=== PATIENT | male | born 1995 | race American Indian/Alaskan Native ===

== ENCOUNTER 2017-03-14 19:28 | Emergency (ER) | payer SELFPAY ==
[2017-03-14] MEDS ORDERED: Lidocaine 1% Inj (20ml) INFIL STA (19:39)
[2017-03-14] MEDS ORDERED: Amoxicillin-Clav 875-125 mg Tab PO STA (19:39)
[2017-03-14] MEDS ORDERED: Lidocaine 1% Inj (20ml) ONE (19:45)
[2017-03-14] MEDS ORDERED: Amoxicillin-Clav 875-125 mg Tab PO ONE (19:45)
[2017-03-14] MEDS ORDERED: Bacitracin 500 Units/gm Oint Foilpak UD ONE (20:17)
[2017-03-14 20:18] VITALS: BP 119/73; PULSE 60; RESP 16; TEMP 98.2; O2SAT 99
--- NOTE | 2017-03-14 21:32 | C.PDOC ---
History Of Present Illness 21 y/o male presents to the ED for evaluation of laceration to the lower lip and immediately above the upper lip after a dog bite BISQUE BRUSHER. Patient is requesting tetanus vaccination. Patient reports dog is a mixed breed and belongs to his roommate. He was playing with the dog when he bit his mouth. Otherwise, denies any sensory change, or any other associated symptoms at this time. Time Seen by Provider: 03/14/17 19:35 Chief Complaint (Nursing): Bite History Per: Patient History/Exam Limitations: no limitations Onset/Duration Of Symptoms: Days Current Symptoms Are (Timing): Still Present Location Of Injury: Anterior: Face Recent travel outside of the [place]: No Additional History Per: Patient - Animal Bite Description Of The Attack: Playing With Animal Description Of The Animal: Other (Roommate pet) Reports Animal Appears: Well Reports Animal's Immunization Status: Unknown Animal Control Notified: No Past Medical History Reviewed: Historical Data, Nursing Documentation, Vital Signs Vital Signs: Last Vital Signs Temp 98.2 F 03/14/17 19:50 Pulse 60 03/14/17 19:50 Resp 16 03/14/17 19:50 BP 119/73 03/14/17 19:50 Pulse Ox 99 03/14/17 21:44 - Medical History PMH: Asthma Denies: Chronic Kidney Disease Family History: States: Unknown Family Hx - Social History Hx Alcohol Use: No Hx Substance Use: No - Immunization History Hx Tetanus Toxoid Vaccination: Yes Hx Influenza Vaccination: No Hx Pneumococcal Vaccination: No Review Of Systems Except As Marked, All Systems Reviewed And Found Negative. Constitutional: Negative for: Fever, Chills Skin: Positive for: Other (laceration to lower lip, and perioral area) Neurological: Negative for: Weakness Physical Exam - Physical Exam Appears: Non-toxic, No Acute Distress Skin: Warm, Dry Head: Atraumatic, Normacephalic Eye(s): bilateral: Normal Inspection Oral Mucosa: Moist Lips: No Swelling, Laceration (0.5cm irregular laceration right above left upper lip; 0.5cm x 0.5cm wedge shaped laceration to mid lower lip) Neck: Normal ROM Chest: Symmetrical Neurological/Psych: Oriented x3, Normal Speech Gait: Steady ED Course And Treatment O2 Sat by Pulse Oximetry: 99 (RA) Pulse Ox Interpretation: Normal Laceration - Laceration Repair lower lip Wound Length (In cm): 0.5cm Description Of Wound: Linear, Clean Wound Cleansed With: Sterile Saline Anesthesia: Lidocaine 1% Wound Examination: Irrigated With Saline, No FB With Wound Exploration, No Tendon Injury With Wound Exploration Wound Closure: Suture (2) Suture Technique And Material Used: Interrupted (loosely), Vicryl (5-0) perioral area Wound Length (In cm): 0.5cm Description Of Wound: Linear, Clean Wound Cleansed With: Sterile Saline Anesthesia: Lidocaine 1% Wound Examination: Irrigated With Saline, No FB With Wound Exploration, No Tendon Injury With Wound Exploration Wound Closure: Suture (2) Suture Technique And Material Used: Interrupted, Prolene (4'0) Medical Decision Making Medical Decision Making: Laceration was thoroughly irrigated with NS under pressure. Laceration was repaired loosel. Patient tolerated procedure well, no immediate complications. Tetanus and Augmentin given. Patient was instructed to return in 48 hours for wound check. Disposition Counseled Patient/Family Regarding: Diagnosis, Need For Followup, Rx Given - Disposition Referrals: [facility] [Outside] [facility] [Outside] [facility] [Outside] Disposition: HOME/ ROUTINE Disposition Time: 20:15 Condition: STABLE Additional Instructions: TAke antibiotic twice daily have wound checked in 48 hours Return to ER if fever occurs, redness or swelling around wound, pus in the wound. Prescriptions: Amoxicillin/Clavulanate [Augmentin 875 MG-125 MG] 1 tab PO BID #14 tab Instructions: Animal Bite (ED), Care For Your Absorbable Stitches (ED) Forms: [employer] (Nepali) - POA Present On Arrival: None - Clinical Impression Clinical Impression: Animal bite wound - PA / [employer] / Resident Statement MD/DO has reviewed & agrees with the documentation as recorded. - Scribe Statement The provider has reviewed the documentation as recorded by the Mauro Delarosa All medical record entries made by the Mauro were at my direction and personally dictated by me. I have reviewed the chart and agree that the record accurately reflects my personal performance of the history, physical exam, medical decision making, and the department course for this patient. I have also personally directed, reviewed, and agree with the discharge instructions and disposition.
== END 2017-03-14 20:18 | disposition home or self-care (01) ==
LOC: C.ER 19:28
DX: S01.511A Laceration without foreign body of lip, initial encounter (principal); S01.512A Laceration without foreign body of oral cavity, initial encounter; W54.0XXA Bitten by dog, initial encounter

== ENCOUNTER 2017-03-14 23:49 | Emergency (ER) | payer SELFPAY ==
[2017-03-14 23:54] VITALS: BP 140/70; PULSE 76; RESP 20; TEMP 98; O2SAT 97
--- NOTE | 2017-03-15 00:52 | C.PDOC ---
History Of Present Illness 21 year old male who was seen in the ER earlier today for a laceration repair that occurred after being bitten by a dog. Patient returns now because one of his stitches fell out and wound began to bleed. Denies other complaints at this time. Time Seen by Provider: 03/15/17 00:03 Chief Complaint (Nursing): Abnormal Skin Integrity History Per: Patient History/Exam Limitations: no limitations Onset/Duration Of Symptoms: Hrs Current Symptoms Are (Timing): Still Present Location Of Injury: Anterior: Head Quality Of Symptoms: Other (open stitch) Recent travel outside of the [place]: No Past Medical History Reviewed: Historical Data, Nursing Documentation, Vital Signs Vital Signs: Last Vital Signs Temp 98 F 03/14/17 23:50 Pulse 76 03/14/17 23:50 Resp 20 03/14/17 23:50 BP 140/70 03/14/17 23:50 Pulse Ox 97 03/15/17 00:52 - Medical History PMH: Asthma Surgical History: No Surg Hx Family History: States: Unknown Family Hx - Social History Hx Alcohol Use: No Hx Substance Use: No - Immunization History Hx Tetanus Toxoid Vaccination: Yes Hx Influenza Vaccination: No Hx Pneumococcal Vaccination: No Review Of Systems Skin: Positive for: Other (Laceration) Physical Exam - Physical Exam Appears: Non-toxic, No Acute Distress Skin: Warm, Dry Head: Atraumatic, Normacephalic Oral Mucosa: Moist Lips: Laceration (2cm to mid lower lip w/ [address] and another fallen out) Neurological/Psych: Oriented x3, Normal Speech, Normal Cognition ED Course And Treatment O2 Sat by Pulse Oximetry: 97 (Room air) Pulse Ox Interpretation: Normal Laceration - Laceration Repair Lower lip Wound Length (In cm): 2 Description Of Wound: Linear Wound Cleansed With: Sterile Saline Anesthesia: Lidocaine 1% Wound Examination: Irrigated With Saline Wound Closure: Suture (2) Suture Technique And Material Used: Vicryl (5-0) Wound Complexity: Simple Medical Decision Making Medical Decision Making: Old records reviewed, patient was seen earlier today for laceration repair. Disposition - Disposition Referrals: [facility] [Outside] Disposition: HOME/ ROUTINE Disposition Time: 00:51 Condition: GOOD Additional Instructions: suture will fall off within 5-7 days. Instructions: Laceration (DC) Forms: [employer] (Japanese) - Clinical Impression Clinical Impression: Animal bite wound, Lip laceration - Scribe Statement The provider has reviewed the documentation as recorded by the Scribe Hal Loyola All medical record entries made by the Scribe were at my direction and personally dictated by me. I have reviewed the chart and agree that the record accurately reflects my personal performance of the history, physical exam, medical decision making, and the department course for this patient. I have also personally directed, reviewed, and agree with the discharge instructions and disposition.
[2017-03-15] MEDS ORDERED: Bacitracin 500 Units/gm Oint Foilpak UD ONE (00:56)
== END 2017-03-15 00:52 | disposition home or self-care (01) ==
LOC: C.ER 23:49
DX: S01.511D Laceration without foreign body of lip, subsequent encounter (principal); W54.0XXD Bitten by dog, subsequent encounter